=== PATIENT | female | born 1995 | race Caucasian/White ===

== ENCOUNTER → 2020-01-30 14:02 | Observation (INO) ==
[2020-01-29 11:11] LABS: Basophils % 0.2 %; Eosinophils # 0.1 K/mcL (0.0-0.6); Hematocrit 35.3 % (35.3-44.9); Hemoglobin 11.6 g/dL (11.5-15.4); Immature Granulocytes % 1.5 % (0-4); Lymphocytes # 1.6 K/mcL (0.6-4.6); Lymphocytes % 12.8 %; Mean Corpuscular HGB Conc 32.9 g/dL (31.6-35.5); Mean Corpuscular Hemoglobin 28.6 pg (28.0-33.3); Mean Corpuscular Volume 86.9 fL (83.0-100.0); Mean Platelet Volume 11.5 fL (9.4-12.4); Monocytes # 0.9 K/mcL (0.0-1.3); Monocytes % 7.1 %; Neutrophils # 9.4 K/mcL (1.6-8.9); Platelet Count 203 K/mcL (140-400); Red Blood Count 4.06 M/mcL (3.82-4.97); Segmented Neutrophils % 77.4 %; White Blood Count 12.2 K/mcL (4.3-11.1)
[2020-01-29 11:19] LABS: Protein/Creatinine Ratio,Urine 0.22 mg/mg (0.00-0.20)
[2020-01-29 11:29] LABS: Alanine Aminotransferase 5 Units/L (7-52); Aspartate Amino Transferase 8 Units/L (13-39); BUN/Creatinine Ratio 14 (6-26); Blood Urea Nitrogen 7 mg/dL (6-20); Lactate Dehydrogenase 135 Units/L (140-271); Uric Acid 4.6 mg/dL (2.3-7.6); eGFR For African Americans > 60 (> 60); eGFR For Non-African Americans > 60 (> 60)
[2020-01-30] MEDS: Ringers Solution, Lactated 1,000 ML IVC SCH ×2 (00:14→09:28)
[2020-01-30 13:05] LABS: Total Volume 24 Hour,Urine 2.17 Liters (0.60-1.60)
[2020-01-30 13:18] LABS: Protein/Creatinine Ratio,Urine 0.17 mg/mg (0.00-0.20)
[~2020-01-30 14:02] MED LIST: *HR* Labetalol 20 MG/4 ML SYRINGE IVP STA; Acetaminophen 325 MG TABLET PO ONE; Acetaminophen/Butalbital/CaffeineTABLET PO ONE; Ondansetron ODT 4 MG TAB.RAPDIS ONE; Ondansetron ODT 4 MG TAB.RAPDIS SL ONE; Prochlorperazine 10 MG/2 ML VIAL IVP PRN
== END | disposition home or self-care (01) ==
LOC: 1NENULAB
PROVIDERS: ADMIT Obstetrics & Gynecology; ATTEND Obstetrics & Gynecology